=== PATIENT | male | born 1990 | race Caucasian/White ===

== ENCOUNTER 2019-04-03 18:23 | Emergency (ER) | payer OTHER, SELFPAY ==
--- NOTE | 2019-04-03 18:29 | ED.URI ---
HPI - URI/Sore Throat General Chief Complaint: Upper Respiratory Infection Stated Complaint: sore throat/cough Time Seen by Provider: 04/03/19 18:41 Source: patient and RN notes reviewed Mode of arrival: ambulatory Limitations: no limitations History of Present Illness HPI Narrative: 28-year-old male presents with concern for sore throat, sinus congestion, cough, low-grade fever that started Sunday night into Sunday morning. Reports has been taking Mucinex DM and Tessalon Perles with little relief. MD elicited complaint: sore throat Related Data Home Medications Medication Instructions Recorded Confirmed meloxicam 15 mg PO DAILY 04/03/19 04/03/19 methocarbamol 750 mg PO DAILY 04/03/19 04/03/19 sertraline 50 mg PO DAILY 04/03/19 04/03/19 Allergies Allergy/AdvReac Type Severity Reaction Status Date / Time No Known Allergies Allergy Verified 04/03/19 18:42 Review of Systems Review of Systems: Narrative: CONSTITUTIONAL: Denies malaise, low-grade fever. EYES: Denies visual changes, redness, or discharge. ENT: Reports rhinorrhea, congestion, otalgia and sore throat. CARDIOVASCULAR: Denies chest pain, palpitations, or edema. RESPIRATORY: Reports cough, chest congestion. Denies dyspnea. GASTROINTESTINAL: Denies abdominal pain, nausea, vomiting, diarrhea SKIN: Denies rash or itching. MUSCULOSKELETAL: Reports myalgia. NEUROLOGIC: Denies headache. All systems reviewed & are unremarkable except as noted in HPI and below PMFSH Comments At time of signature, agree with nursing past medical, surgical, social and family history. There is no relevant family history pertinent to the presenting complaint Exam Narrative: Exam Narrative: GENERAL: Well-appearing, well-nourished, and in no acute distress. HEAD: Normocephalic EYES: PERRLA, conjunctivae clear ENT: Nares clear, turbinates erythematous, clear discharge. Mucous membranes moist. Right TM pearly santana with dull light reflex, left TM erythematous and edematous; no tragal tenderness. Oropharynx erythematous without lesions. Tonsils not enlarged and without exudate, no drooling, no hoarseness, no trismus. NECK: Supple. No lymphadenopathy CHEST: Clear to auscultation, breath sounds equal. No wheezing, rhonchi, rales, or stridor. No respiratory distress, speaks in full sentences. HEART: Regular rate and rhythm. No murmur heard. Normal peripheral pulses. SKIN: Warm, dry, no rash. NEURO: Alert and oriented x3. PSYCH: Normal mood and affect Course Course Emergency Course: Patient is aware of diagnosis, understands and agrees to treatment plan. Anticipatory guidance given. Patient agrees to follow-up as directed and is aware of reasons to seek care at the emergency department. Portions of this record may have been created with voice recognition software Vital Signs Vital signs: Vital Signs Temperature 99.9 F H 04/03/19 18:39 Pulse Rate 89 04/03/19 18:39 Respiratory Rate 18 04/03/19 18:39 Blood Pressure 148/76 H 04/03/19 18:39 Pulse Oximetry 99 04/03/19 18:39 Temperature 99.9 F H 04/03/19 18:39 Pulse Rate 89 04/03/19 18:39 Respiratory Rate 18 04/03/19 18:39 Blood Pressure 148/76 H 04/03/19 18:39 Pulse Oximetry 99 04/03/19 18:39 Reviewed. Pt has been instructed to follow up with his primary care provider within the next week regarding his elevated blood pressure today. MDM - URI/Sore Throat MDM Narrative Medical decision making narrative: Differential diagnosis considered: Strep pharyngitis, allergic rhinitis, upper respiratory tract infection, sinusitis, rhinosinusitis, nasopharyngitis. viral pharyngitis, otitis media, otitis externa, pneumonia, bronchitis, viral cough syndrome, viral syndrome, and influenza. Exam findings show no acute concerns or changes; patient is non-toxic appearing and is in no distress. Patient is appropriate for outpatient treatment and follow-up. Lab Data Attestation: I reviewed the patient's lab results. Labs: Strep
[2019-04-03 18:39] VITALS: BP 148/76; PULSE 89; RESP 18; TEMP 37.7; O2SAT 99
== END 2019-04-03 18:55 | disposition home or self-care (01) ==
PROVIDERS: Emergency Provider Nurse Practitioner
DX: H66.002 Acute suppurative otitis media without spontaneous rupture of ear drum, left ear (principal); J06.9 Acute upper respiratory infection, unspecified; F32.9 Major depressive disorder, single episode, unspecified
CPT/HCPCS: 87081; 87880; 99213; G0463

== ENCOUNTER 2019-08-25 11:39 | Outpatient (CLI) | payer OTHER, SELFPAY ==
[2019-08-25 12:15] LABS: Add Urine Microscopic? NO; Appearance Urine Clear (Clear); Bilirubin Urine Negative (Negative); Blood Urine Negative (Negative); Color Urine Yellow (Yellow); Glucose Urine UA Negative (Negative); Ketones Urine Negative (Negative); Leukocyte Esterase Ur Negative LEU/UL (NEGATIVE); Nitrate Urine Negative (Negative); Protein Urine Negative (Negative); Specific Grav Ur 1.019 (1.001-1.035); Urobilinogen Urine Negative mg/dL (<2.0)
[2019-08-25 14:37] LABS: Alanine Aminotransferase 35 U/L (4-50); Albumin Level 4.3 g/dL (3.5-5.1); Alkaline Phosphatase 55 U/L (38-126); Aspartate Amino Transferase 29 U/L (17-59); Bilirubin,Total 0.5 mg/dL (0.2-1.3); Blood Urea Nitrogen 17 mg/dL (9-20); Calcium 8.8 mg/dL (8.4-10.2); Carbon Dioxide 27 mmol/L (22-30); Chloride 102 mmol/L (98-107); Cholesterol 198 mg/dL (0-200); Estimated Glomerular Filt Rate > 60; Glucose 103 mg/dL (75-110); HDL Direct 40 mg/dL; Potassium 4.3 mmol/L (3.4-5.0); Sodium 136 mmol/L (137-145); Triglycerides 155 mg/dL (<150)
[2019-08-25 14:48] LABS: LDL Cholesterol Direct 128 mg/dL
== END 2019-08-25 11:40 | disposition home or self-care (01) ==
PROVIDERS: PCP Family Medicine; Visit Provider Family Medicine
DX: E78.2 Mixed hyperlipidemia (principal); G89.29 Other chronic pain; M54.41 Lumbago with sciatica, right side; M54.42 Lumbago with sciatica, left side
CPT/HCPCS: 36415; 80053; 80061; 81003; 84443

== ENCOUNTER 2019-09-13 16:16 | Emergency (ER) | payer OTHER, SELFPAY ==
[2019-09-13 16:33] VITALS: BP 113/83; PULSE 106; RESP 16; TEMP 36.4; O2SAT 99
--- NOTE | 2019-09-13 17:32 | ED.GENADULT ---
HPI - General Adult General Chief complaint: Skin/Abscess/Foreign Body <Keyur Alonzo PA-C - Last Filed: 09/13/19 17:37> Stated complaint: wound with swelling back of head <Keyur Alonzo PA-C - Last Filed: 09/13/19 17:37> Time Seen by Provider: 09/13/19 16:40 <Keyur Alonzo PA-C - Last Filed: 09/13/19 17:37> Source: patient <Keyur Alonzo PA-C - Last Filed: 09/13/19 17:37> Mode of arrival: ambulatory <NATAN Flores Last Filed: 09/13/19 17:37> Limitations: no limitations <Keyur Alonzo PA-C - Last Filed: 09/13/19 17:37> History of Present Illness HPI narrative: Patient is a 29-year-old male who presents to emergency department for evaluation of wound to the posterior neck that started is a single lesion is now involved multiple small pustules and wounds to the posterior neck noting moderate aching pain worse with palpation and activity patient was started on clindamycin yesterday started the antibiotics in the evening presents for reevaluation notes some purulent drainage denies any fever chills nausea vomiting and is otherwise in the room in no distress resting comfortably on arrival patient denies similar occurrence in the past <Keyur Alonzo PA-C - Last Filed: 09/13/19 17:37> Related Data Home medications: Home Medications Medication Instructions Recorded Confirmed methocarbamol 750 mg PO DAILY 04/03/19 08/25/19 <Keyur Alonzo PA-C - Last Filed: 09/13/19 17:37> Allergies/adverse reactions: Allergies Allergy/AdvReac Type Severity Reaction Status Date / Time No Known Allergies Allergy Verified 08/25/19 13:57 <Keyur Alonzo PA-C - Last Filed: 09/13/19 17:37> Review of Systems Review of Systems: All systems reviewed & are unremarkable except as noted in HPI and below <Keyur Alonzo PA-C - Last Filed: 09/13/19 17:37> PMFSH Past Medical History Medical History: Medical History Acute non-recurrent maxillary sinusitis Chronic anxiety Chronic low back pain with bilateral sciatica Chronic patellofemoral pain of left knee Depression Hypogonadism male Migraine Mixed hyperlipidemia Obesity (BMI 35.0-39.9 without comorbidity) Shift work sleep disorder <Keyur Alonzo PA-C - Last Filed: 09/13/19 17:37> Surgical History Surgical History: Surgical History H/O spinal fusion (~2005) <Keyur Alonzo PA-C - Last Filed: 09/13/19 17:37> Social History Social History: Social History Smoking status: Never smoker Alcohol intake: current Substance use: never Substance use type: does not use Gender identity (if verbalized by the patient): Male <Keyur Alonzo PA-C - Last Filed: 09/13/19 17:37> Exam Narrative: Exam Narrative: GENERAL: Well-appearing, well-nourished, and in no acute distress. HEAD: Normocephalic, atraumatic. EYES: PERRLA and EOMI. ENT: Nares clear, no rhinorrhea or epistaxis. Mucous membranes moist. CHEST: Clear to auscultation. No respiratory distress. No wheezes rales or rhonchi HEART: Regular rate and rhythm. No murmur heard. EXTREMITIES: Normal range of motion. No edema. SKIN: Warm, dry, multiple pustules to the posterior neck and scalp consistent with folliculitis largest of which measures 2 cm in diameter all have central openings NEURO: No focal deficits. Alert and oriented x3. PSYCH: Normal mood and affect. <Keyur Alonzo PA-C - Last Filed: 09/13/19 17:37> Course Course Emergency Course: Patient in the room in no distress at this time resting comfortably afebrile nontoxic-appearing felt appropriate for outpatient reevaluation had culture of the wound will have antibiotic ointment and Hibiclens added provided with reasons to return and advised to follow with primary care on Sunday
[2019-09-13 18:12] VITALS: BP 120/76; PULSE 75; RESP 18; O2SAT 98
== END 2019-09-13 18:14 | disposition home or self-care (01) ==
PROVIDERS: Emergency Provider General Practice; PCP Family Medicine
DX: L73.9 Follicular disorder, unspecified (principal); E78.2 Mixed hyperlipidemia; E66.9 Obesity, unspecified; Z68.36 Body mass index [BMI] 36.0-36.9, adult; F41.9 Anxiety disorder, unspecified; F32.9 Major depressive disorder, single episode, unspecified
CPT/HCPCS: 87070; 87075; 87147; 87186; 87205; 99283

== ENCOUNTER 2020-11-01 07:39 | Outpatient (CLI) | payer BC, SELFPAY ==
--- NOTE | 2020-11-12 14:11 | WPDHOMESLEEP ---
Sleep Study - Home Unattended Date of Study: 11/01/20 Ordering Provider: Levi Wang MD Interpreting Provider: Rocío Newton MD Home Sleep Study Type: Apnea Link Air Height: 1.8 m Weight: 122.47 kg Body Mass Index: 37.6 Neck Circumference (inches): 18 [place]: 5 Reason for Sleep Study Multiple nighttime awakenings, nocturia, non restorative sleep Sleep History Henrik To is a 30 year old man with complaints of several months waking up 4-5 times at night to urinate and get a drink. He wakes up the morning feeling exhausted. He does not awaken from sleep feeling short of breath. He occasionally awakens at night with heartburn, belching or coughing. He occasionally snores and occasionally it is loud enough that others complain about it. He occasionally has trouble sleeping with a cold. He does not wake up gasping for breath at night. He does not have breathing problems at night observed by others. He rarely sweats excessively at night. He does not notice his heart pounding or beating irregularly at night. He rarely falls asleep during the day, never fall asleep involuntarily. He rarely falls asleep while driving. He does not have loss of muscle tone with strong emotion. He occasionally has daytime difficulties due to excessive sleepiness. He does not feel paralyzed on waking or falling asleep. He does not feel afraid to go to sleep. He occasionally has nightmares and occasionally remembers his dreams. He really has racing thoughts. He rarely feels sad or depressed. He occasionally feels anxiety. He rarely has muscular tension. He occasionally notices parts of his body jerking and he occasionally kicks at night. He rarely has crawling and aching feelings in his legs. He occasionally has leg pain during the night. He rarely has morning jaw pain. He rarely grinds his teeth during sleep. He occasionally is bothered by pain during the day, occasionally awakened by pain during the night. He occasionally wakes up feeling stiff in the morning with sore or achy muscles and pain in the neck and spine. He has fatigue, nightmares, headaches dizziness. He has concentration difficulties and he takes antacids regularly. He only occasionally awakens feeling refreshed. Patient has had a 20 lb increase in weight in the last year. Normal bedtime is between 10:00 p.m. and 11:00 p.m., taking 30 minutes to 1 hour fall asleep, typically awaken 4-5 times at night to urinate have a drink of water. He estimates getting between 4 and 6 hours of sleep nightly. is normal wake up time during awakens between 5:00 a.m. and 6:30 a.m.. On the weekends, bedtime is between 10:00 p.m. and 12 midnight, and wake up is between 6:00 a.m. and 7:00 a.m.. He does not take naps in the afternoon or evening. A short nap is not refreshing. He is usually drowsy in the morning for 3 hours or longer. He feels better in the evening compared other times of day. Habits: He never smoked tobacco. Caffeine 2 carbonated sodas and an energy drink daily. alcohol 3-5 beers occasionally on weekends. No recreational drugs. [facility] Past Medical History Medical History Abnormal fasting glucose Acute non-recurrent maxillary sinusitis Chronic anxiety Chronic low back pain with bilateral sciatica Chronic pain in right shoulder Chronic patellofemoral pain of left knee Depression Elevated C-reactive protein (CRP) (03/16/20) 5.31 on 03/16/20 Encounter for wellness examination in adult Folliculitis Hypersomnia Hypogonadism male Migraine Mixed hyperlipidemia Obesity (BMI 35.0-39.9 without comorbidity) Shift work sleep disorder Surgical History Surgical History H/O spinal fusion (~2005) Family History Family History Mother Diabetes mellitus Father Diabetes mellitus Grandparent Cancer Gra
[2020-11-12 14:28] VITALS: BMI 37.6
== END 2020-11-02 08:30 | disposition home or self-care (01) ==
LOC: ANHCSM 07:41
PROVIDERS: PCP Family Medicine; Visit Provider Family Medicine
DX: G47.10 Hypersomnia, unspecified (principal); R06.83 Snoring; Z68.37 Body mass index [BMI] 37.0-37.9, adult
CPT/HCPCS: 95806

== ENCOUNTER 2021-09-19 13:26 | Outpatient (CLI) | payer BC, SELFPAY ==
--- NOTE | ~2021-09-19 | XR_ITS ---
EXAM: XR knee RT min 4V DATE: 09/19/2021 14:31 HISTORY: M25.561 - Pain in right knee . COMPARISON: None available. FINDINGS: Normal mineralization. No fracture or dislocation. No lytic or blastic lesion. Joint space s are maintained. No erosion or periosteal change. Soft tissues within normal limits. IMPRESSION: No acute osseous finding in the right knee. Reviewed, dictated and finalized at location K.
== END 2021-09-19 13:27 ==
PROVIDERS: PCP Family Medicine; Visit Provider Nurse Practitioner Family
DX: M25.561 Pain in right knee (principal)
CPT/HCPCS: 73564

== ENCOUNTER 2022-11-23 15:23 | Outpatient (CLI) | payer BC, MEDICAID, SELFPAY ==
[2022-11-23 16:15] LABS: Basophils Absolute Auto 0.1 K/mm3 (0.0-0.1); Basophils Percent Auto 0.6 % (0.2-1.2); Eosinophils Absolute Auto 0.1 K/mm3 (0-0.3); Eosinophils Percent Auto 1.1 % (0-4.4); Hematocrit 35.4 % (42.0-52.0); Hemoglobin 10.8 g/dL (14.0-18.0); Immature Granulocyte Absolute 0.06 K/mm3 (0.00-0.031); Immature Granulocyte Percent A 0.6 % (0-0.5); Lymphocytes Absolute Auto 2.23 K/mm3 (0.9-3.2); Lymphocytes Percent Auto 20.6 % (18.3-44.2); Mean Corpuscular HGB Conc 30.5 g/dl (32-36); Mean Corpuscular Hemoglobin 23.4 pg (26-34); Mean Corpuscular Volume 76.8 fl (80-100); Mean Platelet Volume 10.4 fl (7.4-10.4); Monocytes Absolute Auto 0.7 K/mm3 (0.1-0.6); Neutrophils Absolute Auto 7.7 K/mm3 (1.3-6.7); Neutrophils Percent Auto 71.1 % (45.5-73.1); Platelet Count Result 347 k/mm3 (150-375); Red Blood Count 4.61 M/mm3 (4.6-6.20); Red Cell Distribution Width 16.4 % (11.5-14.5); White Blood Count 10.8 K/mm3 (4.5-10.0)
[2022-11-23 16:22] LABS: CRP 4.1 mg/dL (<1.0)
[2022-11-23 16:55] LABS: Erythrocyte Sedimentation Rate 44 mm/hr (0-20)
[2022-11-23 17:25] LABS: Iron 31 ug/dL (49-181)
[2022-11-23 17:28] LABS: Alanine Aminotransferase 28 U/L (6-50); Alkaline Phosphatase 85 U/L (38-126); Anion Gap 9 mmol/L (8-16); Aspartate Amino Transferase 28 U/L (17-59); Bilirubin,Total 0.5 mg/dL (0.2-1.3); Blood Urea Nitrogen 11 mg/dL (9-20); Calcium 8.4 mg/dL (8.4-10.2); Carbon Dioxide 26 mmol/L (22-30); Chloride 101 mmol/L (98-107); Cholesterol 195 mg/dL (0-200); Estimated Glomerular Filt Rate > 60; Glucose 121 mg/dL (65-110); HDL Direct 28 mg/dL; Potassium 3.9 mmol/L (3.4-5.0); Sodium 136 mmol/L (137-145); Triglycerides 130 mg/dL (<150)
[2022-11-23 17:39] LABS: Percent Iron Saturation 14 % (20-50)
[2022-11-23 18:00] LABS: LDL Cholesterol Direct 120 mg/dL
[2022-11-23 18:23] LABS: Hemoglobin A1C 6.1 % (<5.7)
[2022-11-28 12:28] LABS: Testosterone Free 35.7 pg/mL (35.0-155.0); Testosterone Total 182 ng/dL (250-1100)
== END 2022-11-23 15:24 | disposition home or self-care (01) ==
PROVIDERS: PCP Family Medicine; Visit Provider Nurse Practitioner Family
DX: R53.83 Other fatigue (principal); R73.01 Impaired fasting glucose; D64.9 Anemia, unspecified; E78.2 Mixed hyperlipidemia; D52.9 Folate deficiency anemia, unspecified; M43.25 Fusion of spine, thoracolumbar region; M46 Other inflammatory spondylopathies
CPT/HCPCS: 36415; 80053; 80061; 82607; 82728; 82746; 83036; 83540; 83550; 84402; 84403; 84443; 85025; 85652; 86140

== ENCOUNTER 2023-04-13 14:46 | Outpatient (CLI) | payer BC, MEDICAID, SELFPAY ==
[2023-04-13 16:06] LABS: Influenza A QL RT-PCR Negative (Negative); Influenza B QL RT-PCR Negative (Negative); RSV RNA, RT-PCR Negative (Negative); SARS-CoV-2 RNA PCR Negative (Negative)
== END 2023-04-13 14:47 | disposition home or self-care (01) ==
LOC: ANHLAB 14:50
PROVIDERS: PCP Family Medicine; Visit Provider Nurse Practitioner Family
DX: R68.89 Other general symptoms and signs (principal); Z20.822 Contact with and (suspected) exposure to COVID-19
CPT/HCPCS: 87637

== ENCOUNTER 2023-05-11 15:25 | Outpatient (CLI) | payer BC, SELFPAY ==
--- NOTE | ~2023-05-11 | XR_ITS ---
EXAMINATION:XR cervical spine min 6V DATE: 05/11/2023 15:49 INDICATION: Neck pain TECHNIQUE: AP, lateral in neutral, flexion, extension, bilateral oblique and odontoid views of the ce rvical spine are provided. COMPARISON: None FINDINGS: Alignment is normal. There is no hypermobility with flexion or extension. The odontoid proc ess is intact. No fracture is identified. The vertebral body heights are maintained. There is mild lo ss of intervertebral disc space height at C5-6. There is mild uncovertebral joint osteoarthritis. Pre vertebral soft tissues are normal. IMPRESSION: 1. Mild cervical spondylosis without acute findings. Reviewed, dictated and finalized at location F.
== END 2023-05-11 15:26 ==
PROVIDERS: PCP Chiropractor; Visit Provider Chiropractor
DX: M43.02 Spondylolysis, cervical region (principal)
CPT/HCPCS: 72052

== ENCOUNTER 2023-05-11 16:08 | Outpatient (CLI) | payer BC, SELFPAY ==
[2023-05-11 17:00] LABS: Basophils Percent Auto 0.5 % (0.2-1.2); Eosinophils Absolute Auto 0.1 K/mm3 (0-0.3); Eosinophils Percent Auto 0.6 % (0-4.4); Hemoglobin 14.5 g/dL (14.0-18.0); Immature Granulocyte Absolute 0.01 K/mm3 (0.00-0.031); Immature Granulocyte Percent A 0.1 % (0-0.5); Lymphocytes Absolute Auto 2.27 K/mm3 (0.9-3.2); Lymphocytes Percent Auto 27.5 % (18.3-44.2); Mean Corpuscular HGB Conc 31.5 g/dl (32-36); Mean Corpuscular Hemoglobin 25.4 pg (26-34); Mean Corpuscular Volume 80.6 fl (80-100); Mean Platelet Volume 10.9 fl (7.4-10.4); Monocytes Absolute Auto 0.6 K/mm3 (0.1-0.6); Monocytes Percent Auto 6.7 % (2.6-8.5); Neutrophils Absolute Auto 5.3 K/mm3 (1.3-6.7); Neutrophils Percent Auto 64.6 % (45.5-73.1); Platelet Count Result 267 k/mm3 (150-375); Red Blood Count 5.71 M/mm3 (4.6-6.20); Red Cell Distribution Width 15.5 % (11.5-14.5); White Blood Count 8.3 K/mm3 (4.5-10.0)
[2023-05-11 17:14] LABS: Alanine Aminotransferase 33 U/L (6-50); Albumin Level 4.3 g/dL (3.5-5.1); Alkaline Phosphatase 67 U/L (38-126); Anion Gap 8 mmol/L (8-16); Aspartate Amino Transferase 35 U/L (17-59); Bilirubin,Total 0.5 mg/dL (0.2-1.3); Blood Urea Nitrogen 14 mg/dL (9-20); Calcium 9.1 mg/dL (8.4-10.2); Carbon Dioxide 25 mmol/L (22-30); Chloride 103 mmol/L (98-107); Cholesterol 209 mg/dL (0-200); Estimated Glomerular Filt Rate > 60; Glucose 149 mg/dL (65-110); HDL Direct 33 mg/dL; Potassium 3.8 mmol/L (3.4-5.0); Sodium 136 mmol/L (137-145); Triglycerides 261 mg/dL (<150)
[2023-05-11 17:26] LABS: LDL Cholesterol Direct 142 mg/dL
[2023-05-11 18:09] LABS: Iron 63 ug/dL (49-181)
[2023-05-11 18:18] LABS: Percent Iron Saturation 21 % (20-50)
[2023-05-11 18:29] LABS: Hemoglobin A1C 7.1 % (<5.7)
[2023-05-16 14:42] LABS: Testosterone Free 39.4 pg/mL (35.0-155.0); Testosterone Total 229 ng/dL (250-1100)
== END 2023-05-11 16:09 | disposition home or self-care (01) ==
LOC: ANHLAB 16:08
PROVIDERS: PCP Chiropractor; Visit Provider Family Medicine
DX: E78.2 Mixed hyperlipidemia (principal); D64.9 Anemia, unspecified; R73.01 Impaired fasting glucose; Z79.890 Hormone replacement therapy
CPT/HCPCS: 36415; 80053; 80061; 82728; 83036; 83540; 83550; 84402; 84403; 85025

== ENCOUNTER 2023-09-17 10:36 | Outpatient (CLI) | payer BC, SELFPAY ==
[2023-09-17 11:11] LABS: Basophils Absolute Auto 0.1 K/mm3 (0.0-0.1); Basophils Percent Auto 0.6 % (0.2-1.2); Eosinophils Absolute Auto 0.1 K/mm3 (0-0.3); Eosinophils Percent Auto 0.6 % (0-4.4); Hematocrit 50.1 % (42.0-52.0); Immature Granulocyte Absolute 0.03 K/mm3 (0.00-0.031); Immature Granulocyte Percent A 0.3 % (0-0.5); Lymphocytes Absolute Auto 2.04 K/mm3 (0.9-3.2); Lymphocytes Percent Auto 21.4 % (18.3-44.2); Mean Corpuscular HGB Conc 31.9 g/dl (32-36); Mean Corpuscular Hemoglobin 25.9 pg (26-34); Mean Corpuscular Volume 81.1 fl (80-100); Mean Platelet Volume 11.6 fl (7.4-10.4); Monocytes Absolute Auto 0.5 K/mm3 (0.1-0.6); Monocytes Percent Auto 5.6 % (2.6-8.5); Neutrophils Absolute Auto 6.8 K/mm3 (1.3-6.7); Neutrophils Percent Auto 71.5 % (45.5-73.1); Platelet Count Result 294 k/mm3 (150-375); Red Blood Count 6.18 M/mm3 (4.6-6.20); Red Cell Distribution Width 16.3 % (11.5-14.5); White Blood Count 9.5 K/mm3 (4.5-10.0)
[2023-09-17 11:16] LABS: Appearance Urine Cloudy (Clear); Bacteria Urine None Seen /hpf; Bilirubin Urine Negative (Negative); Blood Urine Negative (Negative); Color Urine Yellow (Yellow); Glucose Urine UA Negative (Negative); Ketones Urine Negative (Negative); Leukocyte Esterase Ur Negative LEU/UL (Negative); Nitrate Urine Negative (Negative); Non Pathogenic Casts 0-2; Protein Urine Trace mg/dL (Negative); RBC Urine 0-2 /hpf (0-2); Specific Grav Ur 1.021 (1.001-1.035); Squamous Epithelial Cell Urine None Seen /hpf (Few); WBC Urine 0-5 /hpf (0-3); pH Urine 7.5 (5.0-9.0)
[2023-09-17 11:23] LABS: Add Urine Microscopic? YES
[2023-09-17 11:27] LABS: Alanine Aminotransferase 21 U/L (6-50); Albumin Level 4.5 g/dL (3.5-5.1); Alkaline Phosphatase 59 U/L (38-126); Anion Gap 8 mmol/L (4-12); Aspartate Amino Transferase 22 U/L (17-59); Bilirubin,Total 0.9 mg/dL (0.2-1.3); Blood Urea Nitrogen 13 mg/dL (9-20); Calcium 8.9 mg/dL (8.4-10.2); Carbon Dioxide 34 mmol/L (22-30); Chloride 94 mmol/L (98-107); Cholesterol 155 mg/dL (0-200); Estimated Glomerular Filt Rate > 60; Glucose 94 mg/dL (65-110); HDL Direct 28 mg/dL; Potassium 4.4 mmol/L (3.4-5.0); Sodium 136 mmol/L (137-145); Triglycerides 133 mg/dL (<150)
[2023-09-17 11:39] LABS: LDL Cholesterol Direct 106 mg/dL
[2023-09-17 11:48] LABS: Creatinine Urine 196.1 mg/dL
[2023-09-17 11:54] LABS: MALB Creatinine Ratio 12.1 mg/g (0-30); Microalbumin Urine Random 23.8 mg/L (0-16.7)
[2023-09-21 19:13] LABS: Testosterone Free 160.6 pg/mL (35.0-155.0); Testosterone Total 661 ng/dL (250-1100)
== END 2023-09-17 10:37 | disposition home or self-care (01) ==
PROVIDERS: PCP Family Medicine; Visit Provider Family Medicine
DX: E11.9 Type 2 diabetes mellitus without complications (principal); E78.2 Mixed hyperlipidemia
CPT/HCPCS: 36415; 80053; 80061; 81001; 82043; 83036; 84402; 84403; 85025

== ENCOUNTER 2024-03-03 10:45 | Outpatient (CLI) | payer BC, SELFPAY ==
[2024-03-03 11:04] LABS: Basophils Absolute Auto 0.1 K/mm3 (0.0-0.1); Basophils Percent Auto 0.7 % (0.2-1.2); Eosinophils Absolute Auto 0.1 K/mm3 (0-0.3); Hematocrit 47.5 % (42.0-52.0); Hemoglobin 14.9 g/dL (14.0-18.0); Immature Granulocyte Absolute 0.03 K/mm3 (0.00-0.031); Immature Granulocyte Percent A 0.4 % (0-0.5); Lymphocytes Absolute Auto 1.81 K/mm3 (0.9-3.2); Mean Corpuscular HGB Conc 31.4 g/dl (32-36); Mean Corpuscular Hemoglobin 27.6 pg (26-34); Mean Corpuscular Volume 88.1 fl (80-100); Mean Platelet Volume 10.5 fl (7.4-10.4); Monocytes Absolute Auto 0.6 K/mm3 (0.1-0.6); Monocytes Percent Auto 6.7 % (2.6-8.5); Neutrophils Absolute Auto 5.7 K/mm3 (1.3-6.7); Neutrophils Percent Auto 69.2 % (45.5-73.1); Platelet Count Result 252 k/mm3 (150-375); Red Blood Count 5.39 M/mm3 (4.6-6.20); Red Cell Distribution Width 14.2 % (11.5-14.5); White Blood Count 8.2 K/mm3 (4.5-10.0)
[2024-03-03 11:17] LABS: Hemoglobin A1C 5.4 % (<5.7)
[2024-03-03 11:26] LABS: Alanine Aminotransferase 20 U/L (6-50); Albumin Level 4.4 g/dL (3.5-5.1); Alkaline Phosphatase 52 U/L (38-126); Anion Gap 7 mmol/L (4-12); Aspartate Amino Transferase 22 U/L (17-59); Bilirubin,Total 0.8 mg/dL (0.2-1.3); Blood Urea Nitrogen 14 mg/dL (9-20); CRP 1.2 mg/dL (<1.0); Calcium 8.9 mg/dL (8.4-10.2); Carbon Dioxide 30 mmol/L (22-30); Chloride 101 mmol/L (98-107); Cholesterol 186 mg/dL (0-200); Estimated Glomerular Filt Rate > 60; Glucose 92 mg/dL (65-110); HDL Direct 30 mg/dL; Potassium 4.4 mmol/L (3.4-5.0); Sodium 138 mmol/L (137-145); Triglycerides 103 mg/dL (<150)
[2024-03-03 11:35] LABS: LDL Cholesterol Direct 120 mg/dL
[2024-03-03 11:38] LABS: Erythrocyte Sedimentation Rate 17 mm/hr (0-20)
[2024-03-03 11:51] LABS: Thyroid Stimulating Hormone 0.708 uIU/mL (0.465-4.680)
[2024-03-03 13:30] LABS: Folic Acid 4.7 ng/mL (2.76->20)
== END 2024-03-03 10:46 | disposition home or self-care (01) ==
LOC: ANHLAB 10:47
PROVIDERS: PCP Family Medicine; Visit Provider Family Medicine
DX: D64.9 Anemia, unspecified (principal); E11.9 Type 2 diabetes mellitus without complications; M46.26 Osteomyelitis of vertebra, lumbar region; D52.9 Folate deficiency anemia, unspecified; E29.1 Testicular hypofunction
CPT/HCPCS: 36415; 80053; 80061; 82607; 82746; 83036; 84402; 84403; 84443; 85025; 85652; 86140